=== PATIENT | male | born 1950 | race Hispanic/Latino ===

== ENCOUNTER 2018-09-03 11:26 | Emergency (ER) | payer MEDICARE, OTHER ==
[~2018-09-03] VITALS: Ht 170.2 cm; Wt 77.1 kg
--- OUTSIDE RECORDS SUMMARY | 2018-09-03 11:29 | XMS REPORT | Summary of Care ---
Author Author [facility] Organization [facility] Address Unknown Phone Unavailable Encounter HQ James(FIN) [id number] Date(s): 12/17/17 - 12/17/17 [facility] [address], [address] [place] [address]- [phone] Discharge Disposition: Home or Self Care Attending Physician: Yesenia Mckee MD Vital Signs Most recent to 1 oldest [Reference Range]: Height 167.64 cm (12/17/17 7:35 AM) Temperature Oral 97.8 DegF [96.4-99.1 DegF] (12/17/17 7:35 AM) Blood Pressure 134/71 mmHg [90-140/60-90 mmHg] (12/17/17 7:35 AM) Respiratory Rate 16 BRMIN [14-20 BRMIN] (12/17/17 7:35 AM) Peripheral Pulse 66 bpm Rate [60-100 bpm] (12/17/17 7:35 AM) Weight 71.364 kg (12/17/17 7:35 AM) Body Mass Index 25.39 m2 (12/17/17 7:35 AM) Problem List Condition Effective Dates Status Health Status Informant Acute 12/01/13 Resolved tracheobronchitis1 Benign essential 07/07/13 Active hypertension(Confirm ed)2 Chronic sinusitis3, 12/17/14 Active 4 Essential Active tremor(Confirmed) Gout5 Active Hyperlipidemia(Confi Active rmed) Melanocytic nevus6, 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 2Data migrated from [employer] on 03/16/15. 3Data migrated from [employer] on 04/24/15. 4Data migrated from [employer] on 03/19/15. 5Data migrated from [employer] on 03/16/15. 6Data migrated from [employer] on 04/24/15. 7Data migrated from [employer] on 03/19/15. 8Data migrated from [employer] on 03/16/15. 9Data migrated from [employer] on 04/24/15. 10Data migrated from [employer] on 03/19/15. 11Data migrated from [employer] on 03/16/15. Allergies, Adverse Reactions, Alerts Substance Reaction Severity Status NKDA Active Medications allopurinol 300 mg oral tablet 300 mg=1 tab, PO, Daily, # 90 tab, 1 Refill(s), [facility] Start Date: 12/17/17 Status: Ordered atorvastatin 10 mg oral tablet 10 mg=1 tab, PO, Bedtime, # 90 tab, 1 Refill(s), [facility] Start Date: 12/17/17 Stop Date: 06/15/18 Status: Ordered glimepiride 4 mg oral tablet 4 mg=1 tab, PO, BID, # 180 tab, 1 Refill(s), [facility] Start Date: 12/17/17 Stop Date: 06/15/18 Status: Ordered metFORMIN 1000 mg oral tablet See Instructions, TAKE 1 TABLET BY MOUTH TWICE A DAY WITH MEALS, # 180 tab, 1 Re fill(s), [facility] Start Date: 12/17/17 Status: Ordered ramipril 10 mg oral capsule 10 mg=1 cap, PO, Daily, # 90 cap, 1 Refill(s), [facility] Start Date: 12/17/17 Stop Date: 06/15/18 Status: Ordered Tylenol Arthritis Caplet 650 mg oral tablet, extended release 650 mg=1 tab, PO, Q12H, 0 Refill(s) Start Date: 12/17/17 Status: Ordered Voltaren Topical 1% topical gel 2 gm=1 appl, TOP, BID, Apply to affected area, # 100 gm, 1 Refill(s), [facility] Start Date: 12/17/17 Status: Ordered Results No data available for this section Immunizations Given and Recorded Vaccine Date Status Refusal Reason influenza virus vaccine, inactivated1 08/19/17 Given influenza virus vaccine, inactivated 07/30/16 Given influenza virus vaccine, inactivated 08/07/15 Given influenza virus vaccine, inactivated2 07/07/13 Given pneumococcal 23-valent vaccine 12/03/16 Given pneumococcal 23-valent vaccine3 01/11/04 Given Hx influenza vaccine-unspecified4 08/14/14 Given 1Result Comment: Patient waited in room ten mins, no allergic reaction. 2Result Comment: fluzone (>3 yrs.) [[id number]]. Migrated from OBS ; Data migrated from [employer] on 11/19/2015. 3Result Comment: historical. Migrated from OBS ; Data migrated from [employer] on 11/19/2015. 4Result Comment: fluzone (quadrivalent) no preservative (>3 yrs.) [[id number]]. Migrated from OBS ; Data migrated from [employer] on 11/19/2015. Procedures Procedure Date Related Diagnosis Body Site Status Eye examination1 08/18/16 Completed Echocardiogram2 08/18/13 Completed Myocardial perfusion scan3 08/18/13 Completed Miscellaneous operations4 1979 Completed Miscellaneous operations5 Completed Wrist repair6 Completed 1per patient 2EF 60% . 3normal 4lumbar spine 5left elbow 6right wrist fracture Social History Social History Type Response Alcohol Past Smoking Status Former smoker; Exposure to Tobacco Smoke None; Cigarette Smoking Last 365 Days No; Reg Smoking Cessation Counseling No entered on: 12/17/17 Assessment and Plan No data available for this section
--- OUTSIDE RECORDS SUMMARY | 2018-09-03 11:29 | XMS REPORT | Summary of Care ---
Author Author [facility] Organization [facility] Address Unknown Phone Unavailable Encounter HQ Ollier_dave(FIN) [id number] Date(s): 04/18/18 - 04/18/18 [facility] [address], [address] [place] [address]- [phone] Attending Physician: Yesenia Mckee MD Vital Signs No data available for this section Problem List Condition Effective Dates Status Health Status Informant Acute 12/01/13 Resolved tracheobronchitis1 Benign essential 07/07/13 Active hypertension(Confirm ed)2 Chronic kidney Active disease(Confirmed) Chronic sinusitis3, 12/17/14 Active 4 Essential Active tremor(Confirmed) Gout5 Active Hyperlipidemia(Confi Active rmed) Hypothyroidism(Confi Active rmed) Melanocytic nevus6, 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 2Result Comment: fluzone (>3 yrs.) [[id number]]. Migrated from OBS ; Data migrated from [employer] on 11/19/2015. 3Result Comment: historical. Migrated from OBS ; Data migrated from [employer] on 11/19/2015. 4Result Comment: fluzone (quadrivalent) no preservative (>3 yrs.) [[id number]]. Migrated from OBS ; Data migrated from [employer] on 11/19/2015. Procedures Procedure Date Related Diagnosis [...] Reg Smoking Cessation Counseling No entered on: 04/15/18 Assessment and Plan No data available for this section
--- OUTSIDE RECORDS SUMMARY | 2018-09-03 11:29 | XMS REPORT | Summary of Care ---
Author Author [facility] Organization [facility] Address Unknown Phone Unavailable Encounter HQ James(FIN) [id number] Date(s): 12/17/17 - 12/17/17 [facility] [address], [address] [place] [address]- [phone] Discharge Disposition: Home or Self Care Attending [...] Daily, # 90 tab, 1 Refill(s), [facility] Start Date: 12/17/17 Status: Ordered atorvastatin 10 mg oral tablet 10 mg=1 tab, PO, Bedtime, # 90 tab, 1 Refill(s), [facility] Start Date: 12/17/17 Stop Date: 06/15/18 Status: Ordered glimepiride 4 mg oral tablet 4 mg=1 tab, PO, BID, # 180 tab, 1 Refill(s), [facility] Start Date: 12/17/17 Stop Date: 06/15/18 Status: Ordered metFORMIN 1000 mg oral tablet See Instructions, TAKE 1 TABLET BY MOUTH TWICE A DAY WITH MEALS, # 180 tab, 1 Re fill(s), [facility] Start Date: 12/17/17 Status: Ordered ramipril 10 mg oral capsule 10 mg=1 cap, PO, Daily, # 90 cap, 1 Refill(s), [facility] Start Date: 12/17/17 Stop Date: 06/15/18 Status: Ordered Tylenol Arthritis Caplet 650 mg oral tablet, extended release 650 mg=1 tab, PO, Q12H, 0 Refill(s) Start Date: 12/17/17 Status: Ordered Voltaren Topical 1% topical gel 2 gm=1 appl, TOP, BID, Apply to affected area, # 100 gm, 1 Refill(s), [facility] Start Date: 12/17/17 [...] allergic reaction. 2Result Comment: fluzone (>3 yrs.) [[id number]]. Migrated from OBS ; Data migrated from [employer] on 11/19/2015. 3Result Comment: historical. Migrated from OBS ; Data migrated from [employer] on 11/19/2015. 4Result Comment: fluzone (quadrivalent) no preservative (>3 yrs.) [[id number]]. Migrated from OBS ; Data migrated from [employer] on 11/19/2015. Procedures Procedure Date Related Diagnosis [...]
--- OUTSIDE RECORDS SUMMARY | 2018-09-03 11:29 | XMS REPORT | Summary of Care ---
Author Author [facility] Organization [facility] Address Unknown Phone Unavailable Encounter HQ Ollier_dave(FIN) [id number] Date(s): 02/14/18 - 02/15/18 [facility] [address], [address] [place] [address]- [phone] Vital Signs No data available for this [...] Substance Reaction Severity Status NKDA Active Medications atorvastatin 10 mg oral tablet 10 mg=1 tab, PO, Bedtime, # 90 tab, 1 Refill(s), [facility] Start Date: 02/15/18 Status: Ordered glimepiride 4 mg oral tablet 4 mg=1 tab, PO, BID, # 180 tab, 1 Refill(s), Pharmacy: [facility] #6000 Start Date: 02/15/18 Status: Ordered metFORMIN 1000 mg oral tablet 1,000 mg=1 tab, PO, BID-Meals, # 180 tab, 1 Refill(s), Pharmacy: [facility]/pharmacy #6 000 Start Date: 02/15/18 Status: Ordered ramipril 10 mg oral capsule 10 mg=1 cap, PO, Daily, # 90 cap, 1 Refill(s), [facility] Start Date: 02/15/18 Stop Date: 08/14/18 Status: Ordered Results No data available for [...] allergic reaction. 2Result Comment: fluzone (>3 yrs.) [[id number]]. Migrated from OBS ; Data migrated from [employer] on 11/19/2015. 3Result Comment: historical. Migrated from OBS ; Data migrated from [employer] on 11/19/2015. 4Result Comment: fluzone (quadrivalent) no preservative (>3 yrs.) [[id number]]. Migrated from OBS ; Data migrated from [employer] on 11/19/2015. Procedures Procedure Date Related Diagnosis [...]
--- OUTSIDE RECORDS SUMMARY | 2018-09-03 11:29 | XMS REPORT | Summary of Care ---
Author Author [facility] Organization [facility] Address Unknown Phone Unavailable Encounter VIRIDIANA Ramirez(FIN) [id number] Date(s): 04/15/18 - 04/15/18 [facility] [address], [address] [place] [address]- [phone] Discharge Disposition: Home or Self Care Attending Physician: Yesenia Mckee MD Vital Signs Most recent to 1 oldest [Reference Range]: Height 167.64 cm (04/15/18 7:42 AM) Temperature Oral 97.9 DegF [96.4-99.1 DegF] (04/15/18 7:42 AM) Blood Pressure 118/65 mmHg [90-140/60-90 mmHg] (04/15/18 7:42 AM) Respiratory Rate 16 BRMIN [14-20 BRMIN] (04/15/18 7:42 AM) Peripheral Pulse 65 bpm Rate [60-100 bpm] (04/15/18 7:42 AM) Weight 71.818 kg (04/15/18 7:42 AM) Body Mass Index 25.56 m2 (04/15/18 7:42 AM) Problem List Condition Effective Dates Status [...] Substance Reaction Severity Status NKDA Active Medications levothyroxine 25 mcg (0.025 mg) oral tablet 25 microgram=1 tab, PO, Daily, # 30 tab, 2 Refill(s), Pharmacy: [facility]/pharmacy #[facility] 00 Start Date: 04/15/18 Status: Ordered Results No data available for [...] allergic reaction. 2Result Comment: fluzone (>3 yrs.) [[id number]]. Migrated from OBS ; Data migrated from [employer] on 11/19/2015. 3Result Comment: historical. Migrated from OBS ; Data migrated from [employer] on 11/19/2015. 4Result Comment: fluzone (quadrivalent) no preservative (>3 yrs.) [[id number]]. Migrated from OBS ; Data migrated from [employer] on 11/19/2015. Procedures Procedure Date Related Diagnosis [...]
--- OUTSIDE RECORDS SUMMARY | 2018-09-03 11:29 | XMS REPORT | Continuity of Care Document ---
Author Author [facility] Address Unknown Phone Unavailable Problems Problem Status Onset Date Classification Date Reported Comments Source Chronic sinusitis<sup>3, 4</sup> Active 12/17/2014 Problem 04/21/2018 Data migrated from [email or web address] on 03/19/15. [facility] Melanocytic nevus<sup>6, 7</sup> Active 12/17/2014 Problem 04/21/2018 Data migrated from [email or web address] on 03/19/15. 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 [facility] Acute tracheobronchitis<sup>1</sup> Resolved 12/01/2013 Problem 04/21/2018 Data migrated from [email or web address] on 05/04/15. [facility] Benign essential hypertension<sup>2</sup> Active 07/07/2013 Problem 04/21/2018 Data migrated from [email or web address] on 03/16/15. [facility] Type II diabetes mellitus uncontrolled<sup>11</sup> Active 10/18/1959 Problem 04/21/2018 Data migrated from [email or web address] on 03/16/15. [facility] Essential tremor Active Problem 04/21/2018 [facility] Gout<sup>5</sup> Active Problem 04/21/2018 Data migrated from [email or web address] on 03/16/15. [facility] Hyperlipidemia Active Problem 04/21/2018 [facility] Osteoarthritis<sup>8</sup> Active Problem 04/21/2018 Data migrated from [email or web address] on 03/16/15. [facility] Subclinical hypothyroidism Active Problem 03/25/2018 [facility] Chronic kidney disease Active Problem 04/21/2018 [facility] Hypothyroidism Active Problem 04/21/2018 [facility] CHEST PAIN Active [facility] 723.1 Active [facility] Medications Medication Details Route Status Patient Instructions Ordering Provider Order Date Source levothyroxine 25 mcg (0.025 mg) oral tablet 25 microgram=1 tab, PO, Daily, # 30 tab, 2 Refill(s), [facility] 04/15/2018 [facility] ramipril 10 mg oral capsule 10 mg=1 cap, PO, Daily, # 90 cap, 1 Refill(s), [facility] Active 02/15/2018 [facility] glimepiride 4 mg oral tablet 4 mg=1 tab, PO, BID, # 180 tab, 1 Refill(s), [facility] Active 02/15/2018 [facility] atorvastatin 10 mg oral tablet 10 mg=1 tab, PO, Bedtime, # 90 tab, 1 Refill(s), [facility] Active 02/15/2018 [facility] Metformin hydrochloride 1000 MG Oral Tablet 1,000 mg=1 tab, PO, BID-Meals, # 180 tab, 1 Refill(s), [facility] Active 02/15/2018 [facility] Diclofenac Sodium 0.01 MG/MG Topical Gel [Voltaren] 2 gm=1 appl, TOP, BID, Apply to affected area, # 100 gm, 1 Refill(s), [facility]: [facility] #[facility] Active 12/17/2017 [facility] ramipril 10 mg oral capsule 10 mg=1 cap, PO, Daily, # 90 cap, 1 Refill(s), [facility] Active 12/17/2017 [facility] Metformin hydrochloride 1000 MG Oral Tablet See Instructions, TAKE 1 TABLET BY MOUTH TWICE A DAY WITH MEALS, # 180 tab, 1 Refill(s), Pharmacy: [facility] #[facility] Active 12/17/2017 [facility] glimepiride 4 mg oral tablet 4 mg=1 tab, PO, BID, # 180 tab, 1 Refill(s), Pharmacy: [facility]/pharmacy #6000 Active 12/17/2017 [facility] atorvastatin 10 mg oral tablet 10 mg=1 tab, PO, Bedtime, # 90 tab, 1 Refill(s), Pharmacy: [facility]/pharmacy #6000 Active 12/17/2017 [facility] allopurinol 300 mg oral tablet 300 mg=1 tab, PO, Daily, # 90 tab, 1 Refill(s), Pharmacy: [facility]/pharmacy #6000 Active 12/17/2017 [facility] HR Acetaminophen 650 MG Extended Release Tablet [Tylenol] 650 mg=1 tab, PO, Q12H, 0 Refill(s) Active 12/17/2017 [facility] Allergies, Adverse Reactions, Alerts Substance Category Reaction Severity Reaction type Status Date Reported Comments Source Immunizations Immunization Date Given Site Status Last Updated Comments Source influenza virus vaccine, inactivated<sup>1</sup> 08/19/2017 Right Deltoid completed [facility] Result Comment: Patient waited in room ten mins, no allergic reaction. [facility] pneumococcal 23-valent vaccine 12/03/2016 Right Deltoid completed [facility] influenza virus vaccine, inactivated 07/30/2016 Right Deltoid completed [facility] influenza virus vaccine, inactivated 08/07/2015 Right Deltoid completed [facility] Hx influenza vaccine-unspecified<sup>4</sup> 08/14/2014 Left Deltoid completed GE Result Comment: fluzone (quadrivalent) no preservative (>3 yrs.) [[id number]]. Migrated from OBS ; Data migrated from [email or web address] on 11/19/2015. [facility] influenza virus vaccine, inactivated<sup>2</sup> 07/07/2013 completed [facility] Result Comment: fluzone (>3 yrs.) [[id number]]. Migrated from OBS ; Data migrated from [employer] on 11/19/2015. [facility] pneumococcal 23-valent vaccine<sup>3</sup> 01/11/2004 completed [facility] Result Comment: historical. Migrated from OBS ; Data migrated from [email or web address] on 11/19/2015. [facility] Results Order Name Results Value Reference Range Date Interpretation Comments Source Spine cervical minimum of 4 views Spine cervical minimum of 4 views CERVICAL SPINE RADIOGRAPH 5 VIEWS INDICATION: Neck pain COMPARISON: None FINDINGS: The vertebral bodies are within normal alignment. There is disc space narrowing and osteophytosis at C5-C6 and C6-C7. Arthropathy likely result left foraminal stenosis at C4-C5 and right foraminal stenosis at C5-C6 and C6-C7. No compression or displaced fractures are seen. The prevertebral soft tissues are unremarkable. Calcification of the ligamentum nuchae is incidentally noted. IMPRESSION: Cervical spondyloarthropathy, as described. SL: 16 03/29/2013 - - Read by: Kyle Hanley Dictated Date/time: 03/29/13 15:41 Electronically Signed by: Kyle Hanley MD 03/29/13 15:43 FINAL REPORT [facility] Vital Signs Vital Sign Value Date Comments Source Weight 71.818 04/15/2018 [facility] BMI Calculated 25.56 04/15/2018 [facility] Height 167.64 cm 04/15/2018 [facility] Systolic (mm Hg) 118 04/15/2018 [facility] Diastolic (mm Hg) 65 04/15/2018 [facility] Respitory Rate 16 04/15/2018 [facility] Temperature Oral (F) 97.9 F 04/15/2018 [facility] Heart Rate 65 04/15/2018 [facility] BMI Calculated 25.39 12/17/2017 [facility] Systolic (mm Hg) 134 12/17/2017 [facility] Diastolic (mm Hg) 71 12/17/2017 [facility] Weight 71.364 12/17/2017 [facility] Height 167.64 cm 12/17/2017 [facility] Temperature Oral (F) 97.8 F 12/17/2017 [facility] Respitory Rate 16 12/17/2017 [facility] Heart Rate 66 12/17/2017 [facility] Encounters Location Location Details Encounter Type Encounter Number Reason For Visit Attending Provider ADM Date DC Date Status Source [facility] Outpatient [id number] CHEST PAIN JAYDA LEWIS 07/03/2011 Active [facility] Outpatient [id number] 723.1 JAYDA LEWIS 03/29/2013 Active [facility] Outpatient [id number] YESENIA GATES 05/08/2015 Active [facility] Outpatient [id number] YESENIA GATES 08/07/2015 Active [facility] Outpatient [id number] YESENIA GATES 12/26/2015 Active [facility] Outpatient [id number] YESENIA GATES 02/12/2016 Active [facility] Outpatient [id number] YESENIA GATES 04/03/2016 Active [facility] Outpatient [id number] YESENIA GATES 07/30/2016 Active [facility] Outpatient [id number] YESENIA GATES 12/03/2016 Active [facility] Outpatient [id number] YESENIA GATES 03/25/2017 Active [facility] Outpatient [id number] YESENIA GATES 08/19/2017 Active [facility] Outpatient [id number] YESENIA GATES 12/17/2017 Active [facility] Outpatient [id number] Yesenia Gates 12/17/2017 12/18/2017 [facility] Phone Message [id number] 02/14/2018 02/16/2018 [facility] Outpatient [id number] YESENIA GATES 04/15/2018 Active [facility] Outpatient [id number] Yesenia Gates 04/15/2018 04/16/2018 [facility] Outpatient [id number] YESENIA GATES 04/18/2018 Active [facility] Pre-Reg [id number] Yesenia Gates 04/18/2018 04/18/2018 [facility] Outpatient [id number] NURSE VISIT 07/14/2018 Active [facility] Outpatient [id number] YESENIA GATES 09/01/2018 Active [facility] Outpatient [id number] YESENIA GATES 12/29/2018 Active [facility] Procedures Procedure Code Date Perfomer Comments Source Eye examination<sup>1</sup> [id number] 08/18/2016 per patient [facility] Echocardiogram<sup>2</sup> [id number] 08/18/2013 EF 60% . [facility] Myocardial perfusion scan<sup>3</sup> [id number] 08/18/2013 normal [facility] Miscellaneous operations<sup>4</sup> [id number] 10/18/1979 lumbar spine [facility] Miscellaneous operations<sup>5</sup> [id number] left elbow [facility] Wrist repair<sup>6</sup> [id number] right wrist fracture [facility]
[2018-09-03] MEDS ORDERED: MORPHINE SULFATE 2 MG/ML SYR IV STA (11:37)
[2018-09-03] MEDS ORDERED: COLCHICINE 0.6 MG TAB PO NR (11:45)
[2018-09-03 12:02] LABS: BASOPHILS % 0.4 % (0.0-1.0); EOSINOPHILS # (AUTO) 0.2 (0.0-0.4); EOSINOPHILS % 2.9 % (0.0-6.0); HEMATOCRIT 36.9 % (38.2-49.6); HEMOGLOBIN 12.2 g/dL (14.0-18.0); LYMPHOCYTES # (AUTO) 1.4 (1.0-3.2); LYMPHOCYTES % 17.3 % (18.0-39.1); MEAN CORPUSCULAR HEMOGLOBIN 30.4 pg (28-32); MEAN CORPUSCULAR HGB CONC 33.1 g/dL (31-35); MONOCYTES # (AUTO) 0.5 (0.2-0.8); MONOCYTES % 6.1 % (4.4-11.3); NEUTROPHILS % 72.9 % (38.7-80.0); PLATELET COUNT 265 x10e3/uL (140-360); RED BLOOD COUNT 4.01 x10e6/uL (4.3-5.7); RED CELL DISTRIBUTION WIDTH 12.4 % (11.7-14.4)
[2018-09-03 12:20] LABS: ALANINE AMINOTRANSFERASE 12 IU/L (0-55); ALBUMIN 3.4 g/dL (3.5-5.0); ALKALINE PHOSPHATASE 81 IU/L (40-150); ANION GAP 18.3 mmol/L (8-16); BLOOD UREA NITROGEN 14 mg/dL (7-26); BUN/CREATININE RATIO 13 (6-25); CALCIUM 8.8 mg/dL (8.4-10.2); CARBON DIOXIDE 20 mmol/L (22-29); CHLORIDE 104 mmol/L (98-107); CREATININE, SERUM 1.04 mg/dL (0.72-1.25); EST GLOMERULAR FILTRATION RATE > 60 ML/MIN (60-); GLUCOSE 320 mg/dL (74-118); MAGNESIUM 1.6 MG/DL (1.3-2.1); POTASSIUM 4.3 mmol/L (3.5-5.1); SODIUM 138 mmol/L (136-145)
[2018-09-03] MEDS ORDERED: HYDROCODONE/APAP 7.5MG-325MG 1 EA TAB PO STA (12:22)
[2018-09-03] MEDS ORDERED: SODIUM CHLORIDE 0.9% 1000ML 1,000 ML IV SCH (12:30)
[2018-09-03] MEDS ORDERED: SODIUM CHLORIDE 0.9% 1000ML 1,000 ML IV ONE (13:00)
[2018-09-03] MEDS ORDERED: INSULIN LISPRO 100 UNIT/1 ML 3ML VIAL SQ STA (13:07)
[2018-09-03] MEDS ORDERED: PREDNISONE 20 MG TAB PO ONE (14:00)
[2018-09-03] MEDS ORDERED: COLCRYS0.6 MG PO (14:42)
[2018-09-03] MEDS ORDERED: TYLENOL WITH C1 EACH PO (14:42)
== END 2018-09-03 14:53 | disposition home or self-care (01) ==
LOC: ER 11:26
DX: M10.9 Gout, unspecified (principal); I10 Essential (primary) hypertension; E11.65 Type 2 diabetes mellitus with hyperglycemia
CPT/HCPCS: 36415; 80053; 82948; 83735; 84550; 85025; 85651; 99284